=== PATIENT | female | born 1985 | race African-American/Black ===

== ENCOUNTER 2017-06-05 07:38 | Day surgery (SDC) | payer OTHER ==
[~2017-06-05 07:38] MED LIST: ACETAMINOPHEN 1000 MG/100 ML IVPB
[2017-06-05] MEDS ORDERED: BUPIVACAINE 0.25%/EPI (SDV) 30 ML INJ (12:28)
[2017-06-05] MEDS ORDERED: TRIAMCINOLONE ACET 40 MG/ML INJ (12:28)
[2017-06-05] MEDS ORDERED: MEPERIDINE 25 MG INJ IV (12:30)
[2017-06-05] MEDS ORDERED: OXYCODONE/ACETAMINOPHEN (5/325) TAB PO (12:30)
[2017-06-05] MEDS ORDERED: PROCHLORPERAZINE 10 MG INJ IV (12:30)
[2017-06-05] MEDS ORDERED: HYDROmorphONE (0.2 MG/ML) 10ML SYG IV ×3 (12:30)
[2017-06-05] MEDS ORDERED: DIPHENHYDRAMINE 50 MG INJ IV (12:30)
[2017-06-05] MEDS: BUPIVACAINE 0.25%/EPI (SDV) 30 ML INJ INJ (12:40)
[2017-06-05] MEDS: POLYMYXIN/BACITRACIN 1L IRRIG IRR (12:40)
[2017-06-05] MEDS ORDERED: POLYMYXIN/BACITRACIN 1L IRRIG (12:42)
[2017-06-05] MEDS ORDERED: CITRIC ACID/NA CITRATE 30 ML CUP (12:48)
[2017-06-05] MEDS ORDERED: MIDAZOLAM 1 MG/ML 2 ML INJ (12:53)
[2017-06-05] MEDS ORDERED: LIDOCAINE 2% (SDV) 5 ML INJ (13:09)
[2017-06-05] MEDS ORDERED: PROPOFOL 40 ML (13:09)
[2017-06-05] MEDS ORDERED: SUCCINYLCHOLINE CHLORIDE 100 MG/5 ML SYG IV (13:09)
[2017-06-05] MEDS ORDERED: ROCURONIUM 50 MG INJ (13:09)
[2017-06-05] MEDS ORDERED: FENTAnyl 50 MCG/ML VIAL (13:10)
[2017-06-05] MEDS ORDERED: CEFAZOLIN 1 GM INJ (13:10)
[2017-06-05] MEDS ORDERED: ONDANSETRON 4 MG INJ (13:11)
[2017-06-05] MEDS ORDERED: FAMOTIDINE 20 MG INJ (13:11)
[2017-06-05] MEDS ORDERED: DEXAMETHASONE 4 MG/ML 1 ML INJ (13:11)
[2017-06-05] MEDS ORDERED: SUGAMMADEX SODIUM 200 MG/2 ML VIAL IV (13:21)
[2017-06-05] MEDS ORDERED: METOCLOPRAMIDE 10 MG INJ (13:51)
[2017-06-05] MEDS ORDERED: oxyCODONE 5 MG TAB PO (14:00)
[2017-06-05] MEDS: FENTAnyl 50 MCG/ML VIAL IV ×2 (14:09→14:17)
[2017-06-05] MEDS: ONDANSETRON 4 MG INJ IV (14:10)
== END 2017-06-05 15:12 | disposition home or self-care (01) ==
LOC: SDS 07:38
DX: J35.01 Chronic tonsillitis (principal)
CPT/HCPCS: 42826; 71045; 84703; 88304